=== PATIENT | female | born 1960 | race Hispanic/Latino ===

== ENCOUNTER 2017-09-11 12:02 | Inpatient (IN) | payer OTHER ==
[~2017-09-11] VITALS: Ht 160 cm; Wt 85.5 kg
[2017-09-11] MEDS ORDERED: SODIUM CHLORIDE 0.9% 1000ML 1,000 ML IV STA (12:16)
[2017-09-11] MEDS ORDERED: CEFTRIAXONE SOD 1 GM VIAL IM ONE (12:30)
[2017-09-11] MEDS ORDERED: SODIUM CHLORIDE 0.9% 1000ML 1,000 ML IV SCH ×2 (12:30→16:45)
[2017-09-11] MEDS ORDERED: ALBUTEROL/IPRATROPIUM 3 ML NEB NEB ONE ×2 (12:30→13:45)
[2017-09-11] MEDS ORDERED: ASPIRIN 81 MG CHEW TAB PO ONE (12:30)
[2017-09-11] MEDS ORDERED: ACETAMINOPHEN 325 MG TAB PO ONE ×2 (12:45→19:15)
[2017-09-11] MEDS ORDERED: CEFTRIAXONE SOD 1 GM VIAL IV NR (12:45)
[2017-09-11 13:00] LABS: BASOPHILS % 0.1 % (0.0-1.0); HEMOGLOBIN 12.8 g/dL (12.0-16.0); LYMPHOCYTES # (AUTO) 0.7 (1.0-3.2); LYMPHOCYTES % 6.8 % (18.0-39.1); MEAN CORPUSCULAR HEMOGLOBIN 28.1 pg (28-32); MEAN CORPUSCULAR HGB CONC 32.8 g/dL (31-35); MEAN CORPUSCULAR VOLUME 85.5 fL (81-99); MONOCYTES # (AUTO) 0.9 (0.2-0.8); NEUTROPHILS # (AUTO) 8.1 (2.1-6.9); NEUTROPHILS % 83.6 % (38.7-80.0); PLATELET COUNT 131 x10e3/uL (140-360); RED BLOOD COUNT 4.56 x10e6/uL (3.6-5.1); RED CELL DISTRIBUTION WIDTH 13.2 % (11.7-14.4)
[2017-09-11] MEDS ORDERED: ALBUTEROL/IPRATROPIUM 3 ML NEB ONE (13:16)
[2017-09-11 13:17] LABS: ALBUMIN 3.3 g/dL (3.5-5.0); ALBUMIN/GLOBULIN RATIO 0.8 (0.8-2.0); ANION GAP 16.7 mmol/L (8-16); CALCIUM 8.9 mg/dL (8.4-10.2); CREATININE, SERUM 1.07 mg/dL (0.57-1.11); POTASSIUM 3.7 mmol/L (3.5-5.1)
[2017-09-11 13:23] LABS: CREATINE KINASE MB 0.6 ng/mL (0.00-5.00); TROPONIN I 0.013 ng/mL (0-0.300)
[2017-09-11 13:28] LABS: B-TYPE NATRIURETIC PEPTIDE2 60.1 pg/mL (0-100)
--- NOTE | 2017-09-11 13:40 | Diagnostic Imaging Report ---
PROCEDURE: A single AP view of the chest. COMPARISON: None. INDICATIONS: DYSPNEA FINDINGS: Lines/tubes: None. Lungs: The lungs are well-inflated. Patchy bibasilar airspace opacities, worse on the right lower lobe. No definite consolidation. Pleura: There is no pleural effusion or pneumothorax. Heart and mediastinum: Cardiac silhouette is unremarkable. Mild peribronchial cuffing. Pulmonary vasculature is normal. Bones: No acute bony abnormality. IMPRESSION: 1. findings in the lower lobes, particularly on the right, may represent developing pneumonia, in the appropriate clinical setting versus aspiration. Harvinder Brown M.D. Dictated by: Harvinder Brown M.D. on 09/11/2017 at 13:47 Electronically approved by: Harvinder Brown M.D. on 09/11/2017 at 13:47
[2017-09-11] MEDS ORDERED: AZITHROMYCIN 500MG/SOD CHL 0.9% 250ML BAG IV SCH (14:00)
[2017-09-11 14:07] LABS: LYMPHOCYTES % (MANUAL) 21 % (19-48); METAMYELOCYTES % (MANUAL) 9 % (0-0); MONOCYTES % (MANUAL) 41 % (3.4-9.0); NEUTROPHILS % (MANUAL) 25 % (40-74)
[2017-09-11 14:08] LABS: PLATELET ESTIMATE SLIGHTLY DECREASED; PLATELET MORPHOLOGY COMMENT NORMAL; RBC MORPHOLOGY COMMENT NORMAL
[2017-09-11 14:18] LABS: INR 0.95; PROTHROMBIN TIME 13.2 seconds (11.9-14.5)
[2017-09-11 14:19] LABS: PARTIAL THROMBOPLASTIN TIME 30.3 seconds (23.8-35.5)
[2017-09-11] MEDS ORDERED: CEFTRIAXONE SOD 1 GM in WATER STERILE 10ML VIAL 10 ML IV SCH (15:00)
[2017-09-11] MEDS: ALBUTEROL SULF 0.083% NEB SOLN 3 ML NEB NEB SCH ×3 (15:05→23:02)
[2017-09-11] MEDS: AZITHROMYCIN 500MG/NS 250 ML 250 ML IV SCH (16:42)
[2017-09-11] MEDS ORDERED: ACETAMINOPHEN 325 MG TAB PO PRN ×2 (18:15→18:30)
[2017-09-11] MEDS: OSELTAMIVIR PHOSPHATE 75 MG CAP PO SCH (18:15)
[2017-09-11] MEDS: IPRATROPIUM BROMIDE 0.02% 2.5 ML NEB NEB SCH (19:00)
[2017-09-11] MEDS: SODIUM CHLORIDE 0.9% 1000ML 1,000 ML IV SCH ×2 (19:23→22:04)
--- NOTE | 2017-09-11 19:38 | History and Physical ---
CLINICAL HISTORY: This is a 57-year-old woman seen in the emergency room at [facility] because of flu and pneumonia. This patient has no previous medical history. She was otherwise well until 4 days ago when she noticed dry mouth, aches in her legs followed by diffuse body aches throughout. Yesterday, she went to see Dr. Ortega and was given injection of antibiotic as well as amoxicillin. She felt improved. She came to the emergency room and was found to have pneumonia, H. flu was positive. The patient is being admitted for further evaluation and treatment. PAST MEDICAL HISTORY: Remarkable for absence of other illnesses. She denies any diabetes, hypertension, hyperlipidemia, heart disease or stroke. She is not taking any other medication other than amoxicillin. FAMILY HISTORY: Mother had hypertension and diabetes. Father had lung cancer. Sister had hypertension and diabetes. PAST SURGICAL HISTORY: section. HOME MEDICATIONS: Amoxicillin as mentioned above. PERSONAL/SOCIAL HISTORY: She denies smoking or drinking. She is a housewife. REVIEW OF SYSTEMS: Noncontributory. PHYSICAL EXAMINATION: GENERAL: She appears to be acutely ill. She is somewhat short of breath, slightly tachypneic. VITAL SIGNS: Otherwise stable. CARDIOVASCULAR: Jugular veins are not distended. S1 and S2 were regular. There are no appreciable murmurs. RESPIRATORY: Show bilateral rales. ABDOMEN: Soft. Bowel sounds are present. EXTREMITIES: No cyanosis, clubbing or edema. LABORATORY: EKG was not done. Chest x-ray showed pneumonia, most likely in the right lung base. White count is 9700, hemoglobin 12.8, platelet count 131,000. Sodium is 135. SGOT is 36 and SGPT 63. CK was 209. CK MB is 0.6. Troponin 0.013. Albumin 3.3. IMPRESSION 1. Influenza. 2. Possible superimposed pneumonia, particularly in the right lower lobe. 3. Hyponatremia, 135 mg per deciliter. 4. Mild thrombocytopenia 131,000. RECOMMENDATIONS: Pulmonary consultation. Intravenous antibiotics. She is probably too late to get antiviral therapy. Job#: [id number] GH cc:HOMER ORTEGA MD cc:RISSA NEWTON M.D.
[2017-09-11 23:46] VITALS: BP 179/87
[2017-09-12 01:48] VITALS: BP 126/79
[2017-09-12] MEDS: ALBUTEROL SULF 0.083% NEB SOLN 3 ML NEB NEB SCH ×7 (02:25→23:40)
[2017-09-12] MEDS: IPRATROPIUM BROMIDE 0.02% 2.5 ML NEB NEB SCH ×4 (02:25→19:20)
[2017-09-12] MEDS ORDERED: CEFTRIAXONE SOD 1 GM VIAL ONE (08:01)
[2017-09-12 08:14] VITALS: BP 103/58
[2017-09-12] MEDS: CEFTRIAXONE SOD 1 GM in WATER STERILE 10ML VIAL 10 ML IV SCH (09:08)
[2017-09-12] MEDS: OSELTAMIVIR PHOSPHATE 75 MG CAP PO SCH ×2 (09:08→17:05)
[2017-09-12] MEDS: SODIUM CHLORIDE 0.9% 1000ML 1,000 ML IV SCH ×3 (09:08→20:55)
[2017-09-12] MEDS ORDERED: VANCOMYCIN HCL 1.25 GM in SODIUM CHLORIDE 0.9% 250ML 250 ML IV ONE (12:00)
[2017-09-12 12:25] VITALS: BP 106/65
--- NOTE | 2017-09-12 13:09 | Consultation ---
DATE OF CONSULTATION: September 12, 2017 ATTENDING PHYSICIAN: Walter Brizuela MD REASON FOR CONSULTATION: Flu, pneumonia. Thank you, Dr. Brizuela, for asking me to see this patient. HISTORY OF PRESENT ILLNESS: The patient is a 57-year-old woman referred for flu pneumonia. She presented to the emergency department with progressive shortness of breath and pleuritic chest pain. She began having cough and fever on Friday and was evaluated by the primary care provider the next day. Following evaluation she was treated with intramuscular injection 1 time as well as Augmentin. The patient took 3 to 4 doses of the Augmentin but did not respond. Instead, she developed progressive shortness of breath, pleuritic chest pain and marked lack of energy. Therefore, she came to the emergency department. In the emergency department, she was noted to have "abnormal vital signs" defined as febrile, tachypnea, tachycardia, and hypertension, although the triage note is not available at this time for review. Oxygen saturation on room air was documented as 90%. Initial laboratory studies showed white blood cell count of 9730 with 83.6% neutrophils, BUN 18, creatinine 1.07 and positive (influenza A) rapid influenza test. Chest x-ray showed bilateral lower lobe pneumonia. PAST MEDICAL HISTORY: None. PAST SURGICAL HISTORY: section. ALLERGIES: NO KNOWN DRUG ALLERGIES. MEDICATIONS: See MAR. The current antibiotics are ceftriaxone 1 g IV piggyback q.24 h., azithromycin 500 mg IV piggyback q.24 h. and oseltamivir 75 mg p.o. b.i.d. IMMUNIZATIONS: She received influenza vaccine in July 2017. Pneumococcal vaccination status cannot be verified at this time. FAMILY HISTORY: The mother with diabetes mellitus and hypertension. The father had lung cancer and a sister with diabetes mellitus and hypertension. SOCIAL HISTORY: No alcohol or tobacco use. REVIEW OF SYSTEMS: As per history of present illness. She still has cough, pleuritic chest pain, shortness of breath, and fever. She denies hemoptysis, nausea, vomiting, diarrhea, abdominal pain and dysuria. PHYSICAL EXAMINATION GENERAL: Acutely ill with labored breathing. VITAL SIGNS: T-max 101.4, pulse 87, respiratory rate 18, blood pressure 103/58. Weight 193 pounds. HEENT: Normocephalic. There is no icterus or injection of conjunctivae. There is no ear or nasal discharge. Moist oral mucosa. No pharyngeal erythema or exudate. NECK: Supple. No lymphadenopathy. LUNGS: Rales bilaterally. HEART: Normal S1 and S2. Regular. ABDOMEN: Soft and nontender. EXTREMITIES: No edema, clubbing or cyanosis. SKIN: No acute erythema. LPN CMA: Awake, alert and oriented to person, place and time. No focal deficit. LABORATORY: 09/11/2017: WBC 9703, hemoglobin 12.8, platelets 131,000, neutrophils 83.6, lymphs 6.8, monos 9, eosinophils 0, basophils 0.1. BUN 18, creatinine 1.07. Blood culture is pending. Sputum culture is also pending. IMPRESSION 1. Sepsis. 2. Pneumonia. 3. Influenza A. 4. Hypoxemia. PLAN 1. Check MRSA screen, and legionella antigen test. Streptococcus pneumoniae antigen test is not on the panel here, and outsourcing takes a long time to come back and would not be clinically useful. 2. I agree with current antimicrobials. Start vancomycin 15 mg per kg IV once today. The patient should be given pneumococcal vaccination if not yet done. Pain control. Job#: [id number] LAURENT
[2017-09-12] MEDS: ACETAMINOPHEN 1000 MG/100 ML IV SCH ×2 (14:48→22:00)
[2017-09-12] MEDS: AZITHROMYCIN 500MG/NS 250 ML 250 ML IV SCH (15:11)
[2017-09-12] MEDS: METHYLPREDNISOLONE SOD SUCC 40 MG/ML VIAL IV SCH (15:11)
--- NOTE | 2017-09-12 15:49 | Consultation ---
DATE OF CONSULTATION: PULMONARY CONSULTATION REASON FOR CONSULTATION: Pneumonia. HPI: Ms. Oviedo is a 57-year-old female admitted under Dr. Brizuela's service with complaints of shortness of breath and cough going on for the last few days. This was associated with body aches. She went to see Dr. Denny and was given IV antibiotic. She felt a little better, but still was having cough and body pain, especially chest pain when she was taking deep breaths, so she decided to come to the emergency room. REVIEW OF SYSTEMS GENERAL: Was having fever and chills. HEENT: Denies any head trauma or head injury. ENT: Denies any earache, nosebleed, throat pain. CVS: Pleuritic chest pain. RESPIRATORY: Shortness of breath. GI: Denies any nausea or vomiting. OTHER: The rest of the review of systems are negative except as in HPI. PAST MEDICAL HISTORY: None. PAST SURGICAL HISTORY: . FAMILY HISTORY: Mother has hypertension and diabetes. Father had lung cancer. SOCIAL HISTORY: She denies any smoking or alcohol use. PHYSICAL EXAMINATION VITALS: Temperature 97.4, pulse of 80. Blood pressure 103/58. Respiratory rate 18. O2 sat 97% on 3 liters. SKIN: Warm and dry. GENERAL APPEARANCE: She is a middle-aged female, mild to moderate respiratory distress. She is awake and alert, following commands, responding to questions appropriately. HEENT: Atraumatic and normocephalic. Pupils are reactive. NECK: Supple. CHEST: Crackles bilaterally. Poor effort as she has pleuritic chest pain. HEART: S1, S2 audible. ABDOMEN: Soft, nontender, nondistended. EXTREMITIES: No clubbing, cyanosis or edema. NEUROLOGIC: Awake and alert, following commands, responding to questions appropriately. LABORATORY DATA: Sodium 135, potassium 3.7, BUN 18, creatinine 1.07, AST and ALT 36 and 63. White count 9.73, hemoglobin 12.8, platelets 131. INR is 0.95. Sputum Gram stain and blood cultures are pending. Influenza is positive. I reviewed the chest x-ray films. She has right lower lobe pneumonia and possibly left lower lobe as well, but definitely right lower lobe. ASSESSMENT AND PLAN 1. Right lower lobe pneumonia. 2. Influenza. 3. Pleuritic chest pain as location of pneumonia is very close to pleural surface. PLAN 1. Continue the patient on Tamiflu and IV antibiotics. The patient is on IV Rocephin and azithromycin. ID has been consulted. 2. Continue the patient on nebulizer treatment. I will start low-dose of IV steroids as this will help in pleuritic chest pain and inflammation. Thank you for this consult. Job#: [id number]
[2017-09-12 16:42] VITALS: BP 180/56
[2017-09-12 19:55] VITALS: BP 110/55
[2017-09-13 00:07] VITALS: BP 134/73
[2017-09-13] MEDS: IPRATROPIUM BROMIDE 0.02% 2.5 ML NEB NEB SCH ×4 (03:40→19:10)
[2017-09-13] MEDS: ALBUTEROL SULF 0.083% NEB SOLN 3 ML NEB NEB SCH ×5 (03:40→19:10)
[2017-09-13 05:19] VITALS: BP 108/57
[2017-09-13] MEDS: SODIUM CHLORIDE 0.9% 1000ML 1,000 ML IV SCH ×3 (05:20→22:00)
[2017-09-13] MEDS: ACETAMINOPHEN 1000 MG/100 ML IV SCH (05:46)
[2017-09-13] MEDS ORDERED: CEFTRIAXONE SOD 1 GM VIAL ONE (07:37)
[2017-09-13] MEDS: OSELTAMIVIR PHOSPHATE 75 MG CAP PO SCH ×2 (07:53→17:10)
[2017-09-13] MEDS: METHYLPREDNISOLONE SOD SUCC 40 MG/ML VIAL IV SCH (07:53)
[2017-09-13] MEDS: CEFTRIAXONE SOD 1 GM in WATER STERILE 10ML VIAL 10 ML IV SCH (07:53)
[2017-09-13 07:59] VITALS: BP 125/67
[2017-09-13] MEDS ORDERED: VANCOMYCIN HCL 1.25 GM in SODIUM CHLORIDE 0.9% 250ML 250 ML IV ONE (11:30)
[2017-09-13 12:01] VITALS: BP 137/74
[2017-09-13] MEDS: PANTOPRAZOLE SOD 40 MG TABEC PO SCH (14:15)
[2017-09-13] MEDS: AZITHROMYCIN 500MG/NS 250 ML 250 ML IV SCH (15:11)
[2017-09-13 16:05] VITALS: BP 118/86
[2017-09-13] MEDS: BUDESONIDE 0.5MG/2 ML NEB INH SCH (19:10)
[2017-09-13 20:00] VITALS: BP 138/65
[2017-09-14] VITALS: BP 112/53
[2017-09-14] MEDS ORDERED: GUAIFENESIN/DEXTROMETHORPHAN LIQD 5 ML UDC PO STA (00:18)
[2017-09-14] MEDS: ALBUTEROL SULF 0.083% NEB SOLN 3 ML NEB NEB SCH ×5 (03:10→19:45)
[2017-09-14] MEDS: IPRATROPIUM BROMIDE 0.02% 2.5 ML NEB NEB SCH ×4 (03:10→19:45)
[2017-09-14 04:00] VITALS: BP 131/63
[2017-09-14] MEDS: GUAIFENESIN/DEXTROMETHORPHAN LIQD 5 ML UDC PO PRN ×3 (04:15→22:05)
[2017-09-14] MEDS: SODIUM CHLORIDE 0.9% 1000ML 1,000 ML IV SCH (04:55)
[2017-09-14] MEDS: BUDESONIDE 0.5MG/2 ML NEB INH SCH ×2 (07:09→20:00)
[2017-09-14 08:09] VITALS: BP 130/66
[2017-09-14] MEDS ORDERED: CEFTRIAXONE SOD 1 GM VIAL ONE (08:44)
[2017-09-14] MEDS: PANTOPRAZOLE SOD 40 MG TABEC PO SCH (10:08)
[2017-09-14] MEDS: OSELTAMIVIR PHOSPHATE 75 MG CAP PO SCH ×2 (10:08→16:51)
[2017-09-14] MEDS: CEFTRIAXONE SOD 1 GM in WATER STERILE 10ML VIAL 10 ML IV SCH (10:08)
[2017-09-14] MEDS: METHYLPREDNISOLONE SOD SUCC 40 MG/ML VIAL IV SCH (10:08)
[2017-09-14 12:01] VITALS: BP 137/67
[2017-09-14 13:36] LABS: BASOPHILS # (AUTO) 0.1 (0.0-0.1); BASOPHILS % 0.5 % (0.0-1.0); HEMATOCRIT 31.1 % (34.2-44.1); HEMOGLOBIN 10.7 g/dL (12.0-16.0); LYMPHOCYTES # (AUTO) 1.3 (1.0-3.2); LYMPHOCYTES % 11.4 % (18.0-39.1); MEAN CORPUSCULAR HEMOGLOBIN 28.3 pg (28-32); MEAN CORPUSCULAR HGB CONC 34.4 g/dL (31-35); MEAN CORPUSCULAR VOLUME 82.3 fL (81-99); MONOCYTES # (AUTO) 1.1 (0.2-0.8); PLATELET COUNT 240 x10e3/uL (140-360); RED BLOOD COUNT 3.78 x10e6/uL (3.6-5.1); RED CELL DISTRIBUTION WIDTH 14.2 % (11.7-14.4)
[2017-09-14 14:15] LABS: ANION GAP 10.9 mmol/L (8-16); BLOOD UREA NITROGEN 8 mg/dL (7-26); BUN/CREATININE RATIO 13 (6-25); CALCIUM 8.3 mg/dL (8.4-10.2); CARBON DIOXIDE 25 mmol/L (22-29); CHLORIDE 107 mmol/L (98-107); CREATININE, SERUM 0.63 mg/dL (0.57-1.11); EST GLOMERULAR FILTRATION RATE > 60 ML/MIN (60-); GLUCOSE 156 mg/dL (74-118); SODIUM 140 mmol/L (136-145)
[2017-09-14 14:20] LABS: POTASSIUM 2.9 mmol/L (3.5-5.1)
[2017-09-14 15:02] LABS: BAND NEUTROPHILS % (MANUAL) 28 %; LYMPHOCYTES % (MANUAL) 17 % (19-48); MONOCYTES % (MANUAL) 2 % (3.4-9.0); NEUTROPHILS % (MANUAL) 53 % (40-74)
[2017-09-14 15:03] LABS: PLATELET ESTIMATE ADEQUATE; PLATELET MORPHOLOGY COMMENT NORMAL; RBC MORPHOLOGY COMMENT NORMAL
[2017-09-14] MEDS: VANCOMYCIN 1GM/NS 250 ML 250 ML IV SCH (15:28)
[2017-09-14 16:00] VITALS: BP 123/62
[2017-09-14] MEDS ORDERED: POTASSIUM CHLORIDE 20 MEQ TAB CR PO ONE (16:00)
[2017-09-14] MEDS: AZITHROMYCIN 500MG/NS 250 ML 250 ML IV SCH (16:51)
[2017-09-14 20:27] VITALS: BP 127/72
[2017-09-15] MEDS: IPRATROPIUM BROMIDE 0.02% 2.5 ML NEB NEB SCH ×4 (00:15→19:45)
[2017-09-15] MEDS: LEVALBUTEROL HCL SOLN NEBU 0.63 MG/3 ML NEB INH SCH ×8 (00:15→23:05)
[2017-09-15] MEDS: VANCOMYCIN 1GM/NS 250 ML 250 ML IV SCH ×2 (00:30→13:14)
[2017-09-15 00:42] VITALS: BP 115/58
[2017-09-15] MEDS ORDERED: LEVALBUTEROL HCL SOLN NEBU 0.63 MG/3 ML NEB INH SCH (01:00)
[2017-09-15 05:37] VITALS: BP 139/67
[2017-09-15] MEDS: SODIUM CHLORIDE 0.9% 1000ML 1,000 ML IV SCH (06:00)
--- NOTE | 2017-09-15 06:11 | Diagnostic Imaging Report ---
EXAMINATION: CHEST SINGLE (PORTABLE) INDICATION: Pneumonia. COMPARISON: None FINDINGS: TUBES and LINES: None. LUNGS: Lungs are not well inflated. There are bibasilar atelectasis. There is mild prominence of the central pulmonary vasculature, consistent with pulmonary venous congestion. Additionally, there are confluent opacities in the lung bases right greater than left. PLEURA: No pleural effusion or pneumothorax. HEART AND MEDIASTINUM: The cardiomediastinal silhouette is unremarkable. BONES AND SOFT TISSUES: No acute osseous lesion. Soft tissues are unremarkable. UPPER ABDOMEN: No free air under the diaphragm. IMPRESSION: 1. Findings are compatible with fluid overload/pulmonary edema. 2. Bibasilar atelectasis present. 3. Superimposed pneumonia cannot be excluded more conspicuously noted in the right lower lobe Signed by: Dr. Jose Pradhan M.D. on 09/15/2017 6:08 AM
[2017-09-15] MEDS: BUDESONIDE 0.5MG/2 ML NEB INH SCH (06:50)
[2017-09-15] MEDS: PANTOPRAZOLE SOD 40 MG TABEC PO SCH (07:30)
[2017-09-15 08:00] VITALS: BP 128/75
[2017-09-15] MEDS ORDERED: CEFTRIAXONE SOD 1 GM VIAL ONE (08:44)
[2017-09-15] MEDS: CEFTRIAXONE SOD 1 GM in WATER STERILE 10ML VIAL 10 ML IV SCH (08:52)
[2017-09-15] MEDS: OSELTAMIVIR PHOSPHATE 75 MG CAP PO SCH ×2 (08:52→17:27)
[2017-09-15] MEDS: METHYLPREDNISOLONE SOD SUCC 40 MG/ML VIAL IV SCH (08:52)
[2017-09-15] MEDS ORDERED: POTASSIUM CHLORIDE 20 MEQ TAB CR PO ONE (10:40)
[2017-09-15] MEDS ORDERED: FUROSEMIDE INJ 10 MG/ML 2 ML VIAL IV ONE (10:45)
[2017-09-15 11:13] LABS: % IRON SATURATION 9 % (15-50); IRON 19 ug/dL (50-170); LIPASE 169 U/L (8-78); TOTAL IRON BINDING CAPACITY 223 ug/dL (261-478); TRANSFERRIN 159 mg/dL (180-382)
[2017-09-15 12:00] VITALS: BP 150/78
[2017-09-15] MEDS: POTASSIUM CHLORIDE 20 MEQ TAB CR PO SCH ×3 (13:28→17:27)
[2017-09-15] MEDS: AZITHROMYCIN 500MG/NS 250 ML 250 ML IV SCH (14:45)
[2017-09-15 16:00] VITALS: BP 120/65
[2017-09-15 20:00] VITALS: BP 118/88
[2017-09-16] VITALS: BP 134/78
[2017-09-16] MEDS: LEVALBUTEROL HCL SOLN NEBU 0.63 MG/3 ML NEB INH SCH ×5 (00:45→20:30)
[2017-09-16] MEDS: VANCOMYCIN 1GM/NS 250 ML 250 ML IV SCH (01:00)
[2017-09-16] MEDS: IPRATROPIUM BROMIDE 0.02% 2.5 ML NEB NEB SCH ×4 (02:02→20:30)
[2017-09-16 04:00] VITALS: BP 124/58
[2017-09-16 05:58] LABS: BASOPHILS # (AUTO) 0.1 (0.0-0.1); BASOPHILS % 0.4 % (0.0-1.0); EOSINOPHILS # (AUTO) 0.1 (0.0-0.4); EOSINOPHILS % 0.6 % (0.0-6.0); HEMOGLOBIN 10.1 g/dL (12.0-16.0); LYMPHOCYTES # (AUTO) 2.8 (1.0-3.2); LYMPHOCYTES % 21.1 % (18.0-39.1); MEAN CORPUSCULAR HEMOGLOBIN 28.6 pg (28-32); MEAN CORPUSCULAR HGB CONC 33.7 g/dL (31-35); MONOCYTES # (AUTO) 1.1 (0.2-0.8); MONOCYTES % 8.5 % (4.4-11.3); NEUTROPHILS # (AUTO) 8.2 (2.1-6.9); NEUTROPHILS % 62.1 % (38.7-80.0); PLATELET COUNT 356 x10e3/uL (140-360); RED BLOOD COUNT 3.53 x10e6/uL (3.6-5.1); RED CELL DISTRIBUTION WIDTH 14.6 % (11.7-14.4)
[2017-09-16] MEDS: SODIUM CHLORIDE 0.9% 1000ML 1,000 ML IV SCH (06:00)
[2017-09-16 06:18] LABS: ALANINE AMINOTRANSFERASE 39 IU/L (0-55); ALBUMIN 2.3 g/dL (3.5-5.0); ALBUMIN/GLOBULIN RATIO 0.7 (0.8-2.0); ALKALINE PHOSPHATASE 60 IU/L (40-150); ANION GAP 11.6 mmol/L (8-16); BLOOD UREA NITROGEN 11 mg/dL (7-26); BUN/CREATININE RATIO 20 (6-25); CALCIUM 8.2 mg/dL (8.4-10.2); CARBON DIOXIDE 29 mmol/L (22-29); CHLORIDE 108 mmol/L (98-107); CREATININE, SERUM 0.56 mg/dL (0.57-1.11); EST GLOMERULAR FILTRATION RATE > 60 ML/MIN (60-); GLUCOSE 92 mg/dL (74-118); POTASSIUM 3.6 mmol/L (3.5-5.1); SODIUM 145 mmol/L (136-145)
--- NOTE | 2017-09-16 07:13 | Diagnostic Imaging Report ---
PROCEDURE: X-RAY CHEST, TWO VIEWS COMPARISON: 09/15/2017. INDICATIONS: COUGH FINDINGS: The lungs are reasonably well inflated. There is right middle lobe consolidation most notable on the lateral radiograph. Patchy perihilar and bilateral lower lobe air space opacities are also noted, along with small bilateral pleural effusions. Heart size is normal for technique with a tortuous thoracic aorta. No acute osseous abnormality. CONCLUSION: Findings suggest pulmonary venous congestion and trace bilateral pleural effusions with superimposed right middle lobe pneumonia. Dictated by: Joel Moreno M.D. on 09/16/2017 at 7:21 Electronically approved by: Joel Moreno M.D. on 09/16/2017 at 7:21
[2017-09-16 07:43] LABS: BAND NEUTROPHILS % (MANUAL) 2 %; LYMPHOCYTES % (MANUAL) 28 % (19-48); METAMYELOCYTES % (MANUAL) 2 % (0-0); MONOCYTES % (MANUAL) 3 % (3.4-9.0); MYELOCYTES % (MANUAL) 2 % (0-0); NEUTROPHILS % (MANUAL) 62 % (40-74)
[2017-09-16 07:44] LABS: ANISOCYTOSIS SLIGHT; PLATELET ESTIMATE ADEQUATE; PLATELET MORPHOLOGY COMMENT NORMAL; POIKILOCYTOSIS SLIGHT; RBC MORPHOLOGY COMMENT NORMAL
[2017-09-16 08:03] VITALS: BP 127/69
[2017-09-16] MEDS ORDERED: ZYVOX600 MG PO (09:32)
[2017-09-16] MEDS: LINEZOLID 600 MG/D5W 300ML 300 ML IV SCH ×2 (10:09→22:00)
[2017-09-16] MEDS: METHYLPREDNISOLONE SOD SUCC 40 MG/ML VIAL IV SCH (10:09)
[2017-09-16] MEDS ORDERED: FUROSEMIDE INJ 10 MG/ML 2 ML VIAL IV NR (10:45)
[2017-09-16] MEDS ORDERED: POTASSIUM CHLORIDE 20 MEQ TAB CR PO NR (10:45)
[2017-09-16] MEDS ORDERED: OYST-CAL-D 500MG TABLET PO NR (11:00)
[2017-09-16] MEDS ORDERED: METOLAZONE 5 MG TAB PO NR (11:00)
--- NOTE | 2017-09-16 11:53 | Cardiology Report ---
DATE OF STUDY: September 15, 2017 ECHOCARDIOGRAM M-MODE: Normal chamber wall dimensions. Normal contractility. Normal mitral and aortic valves. No pericardial effusion. SECTOR SCAN: Normal chamber wall dimensions. Normal contractility. Ejection fraction 70%. Mitral, aortic and tricuspid valves are grossly normal. There is no pericardial effusion. CARDIAC DOPPLER STUDY WITH COLOR: Trace tricuspid regurgitation. Pulmonary artery systolic pressure estimated at 28 mmHg. CONCLUSIONS 1. Left ventricular ejection fraction is approximately 70%. 2. Trace tricuspid regurgitation without significant pulmonary hypertension. Job#: [id number] cc:MD RSISA YANES M.D.
--- NOTE | 2017-09-16 12:10 | Diagnostic Imaging Report ---
PROCEDURE:US GALLBLADDER COMPARISON:None. INDICATIONS:ELEVATED LFT TECHNIQUE: Manrique-scale and color doppler transverse and longitudinal images of the right upper quadrant of the abdomen were obtained. FINDINGS: Liver: 13.4 cm in right mid-clavicular line. Increased parenchymal echogenicity. No masses. Main portal vein: One cm in caliber. Hepatopedal flow. Gallbladder: Unremarkable in sonographic appearance without shadowing calculus, wall thickening, or pericholecystic fluid. Common Bile Duct: 0.5 cm in caliber. Sonographic Pinzon's sign: Negative Right kidney: 11.1 cm in length. Normal renal cortical echogenicity. No solid masses or hydronephrosis. Questionable shadowing focus in the right kidney may represent a calculus. Pancreas: The visualized portions are unremarkable. Inferior vena cava: Patent Aorta: Non-aneurysmal Ascites: None in the right upper quadrant of the abdomen. CONCLUSION: Unremarkable sonographic appearance of the gallbladder. No cholelithiasis or sonographic evidence of acute cholecystitis. Hepatic steatosis. Small right renal calculus or dystrophic cortical calcification. No hydronephrosis. Dictated by: Joel Moreno M.D. on 09/16/2017 at 12:17 Electronically approved by: Joel Moreno M.D. on 09/16/2017 at 12:17
[2017-09-16] MEDS: OSELTAMIVIR PHOSPHATE 75 MG CAP PO SCH ×2 (12:17→17:44)
[2017-09-16] MEDS: FERROUS SULFATE 325 MG TAB PO SCH (12:17)
[2017-09-16] MEDS: PANTOPRAZOLE SOD 40 MG TABEC PO SCH (12:17)
[2017-09-16 12:32] LABS: BILIRUBIN,URINE NEGATIVE (NEGATIVE); CLARITY,URINE CLEAR (CLEAR); COLOR,URINE YELLOW (YELLOW); KETONES,URINE NEGATIVE (NEGATIVE); LEUKOCYTE ESTERASE ,URINE NEGATIVE (NEGATIVE); NITRITE,URINE NEGATIVE (NEGATIVE); PROTEIN,URINE DIPSTICK NEGATIVE (NEGATIVE); URINE UROBILINOGEN 0.2 mg/dL (0.2 - 1)
[2017-09-16] MEDS ORDERED: VANCOMYCIN HCL 1.25 GM in SODIUM CHLORIDE 0.9% 250ML 250 ML IV SCH (13:00)
[2017-09-16 20:00] VITALS: BP 129/69
[2017-09-17] VITALS: BP 120/56
[2017-09-17 04:00] VITALS: BP 118/60
[2017-09-17] MEDS: SODIUM CHLORIDE 0.9% 1000ML 1,000 ML IV SCH (06:00)
[2017-09-17 06:58] LABS: ALANINE AMINOTRANSFERASE 49 IU/L (0-55); ALBUMIN 2.7 g/dL (3.5-5.0); ALBUMIN/GLOBULIN RATIO 0.7 (0.8-2.0); ALKALINE PHOSPHATASE 78 IU/L (40-150); ANION GAP 14.7 mmol/L (8-16); BLOOD UREA NITROGEN 12 mg/dL (7-26); BUN/CREATININE RATIO 18 (6-25); CALCIUM 9.2 mg/dL (8.4-10.2); CARBON DIOXIDE 29 mmol/L (22-29); CHLORIDE 102 mmol/L (98-107); CREATININE, SERUM 0.66 mg/dL (0.57-1.11); EST GLOMERULAR FILTRATION RATE > 60 ML/MIN (60-); GLUCOSE 104 mg/dL (74-118); POTASSIUM 3.7 mmol/L (3.5-5.1); SODIUM 142 mmol/L (136-145)
[2017-09-17] MEDS: GUAIFENESIN/DEXTROMETHORPHAN LIQD 5 ML UDC PO PRN (07:10)
[2017-09-17] MEDS: LEVALBUTEROL HCL SOLN NEBU 0.63 MG/3 ML NEB INH SCH ×5 (07:20→23:10)
[2017-09-17] MEDS: IPRATROPIUM BROMIDE 0.02% 2.5 ML NEB NEB SCH ×3 (07:20→19:40)
[2017-09-17] MEDS: PANTOPRAZOLE SOD 40 MG TABEC PO SCH (08:33)
[2017-09-17] MEDS: OSELTAMIVIR PHOSPHATE 75 MG CAP PO SCH ×2 (08:33→17:30)
[2017-09-17] MEDS: FERROUS SULFATE 325 MG TAB PO SCH (08:33)
[2017-09-17] MEDS: METHYLPREDNISOLONE SOD SUCC 40 MG/ML VIAL IV SCH (08:33)
[2017-09-17 08:46] VITALS: BP 112/59
[2017-09-17] MEDS ORDERED: FUROSEMIDE INJ 10 MG/ML 2 ML VIAL IV NR (10:00)
[2017-09-17] MEDS: LINEZOLID 600 MG/D5W 300ML 300 ML IV SCH ×2 (10:10→21:41)
[2017-09-17] MEDS ORDERED: ACETAZOLAMIDE 500 MG CAP PO NR (11:00)
[2017-09-17] MEDS ORDERED: POTASSIUM CHLORIDE 20 MEQ TAB CR PO NR (11:15)
--- NOTE | 2017-09-17 11:24 | Diagnostic Imaging Report ---
PROCEDURE: A single AP view of the chest. COMPARISON: None. INDICATIONS: PNEUMONIA, SHORTNESS OF BREATH FINDINGS: Lines/tubes: None. Lungs: Bibasilar airspace opacities. No parenchymal mass. Pleura: There is no pleural effusion or pneumothorax. Heart and mediastinum: The heart and the mediastinum are unremarkable. Bones: No acute bony abnormality. Degenerative changes of the thoracic spine. IMPRESSION: Bibasilar airspace opacities may represent a developing pneumonia. Dictated by: Jose Miguel Henning M.D. on 09/17/2017 at 11:31 Electronically approved by: Jose Miguel Henning M.D. on 09/17/2017 at 11:31
[2017-09-17 11:54] VITALS: BP 111/70
[2017-09-17 15:19] LABS: ABG HCO3 34 mmol/L (23-28); ABG PCO2 43 mmHg (41-51); ABG PH 7.51 (7.31-7.41); ABG PO2 59 mmHg (80-105)
[2017-09-17 16:24] VITALS: BP 115/63
[2017-09-17 20:00] VITALS: BP 116/78
[2017-09-18] VITALS: BP 117/70
[2017-09-18] MEDS: LEVALBUTEROL HCL SOLN NEBU 0.63 MG/3 ML NEB INH SCH ×6 (00:35→19:25)
[2017-09-18] MEDS: IPRATROPIUM BROMIDE 0.02% 2.5 ML NEB NEB SCH ×4 (02:40→19:25)
[2017-09-18 04:00] VITALS: BP 86/50
[2017-09-18 06:12] LABS: BASOPHILS # (AUTO) 0.1 (0.0-0.1); BASOPHILS % 0.3 % (0.0-1.0); EOSINOPHILS # (AUTO) 0.1 (0.0-0.4); EOSINOPHILS % 0.7 % (0.0-6.0); HEMATOCRIT 33.8 % (34.2-44.1); LYMPHOCYTES # (AUTO) 3.4 (1.0-3.2); MEAN CORPUSCULAR HEMOGLOBIN 27.8 pg (28-32); MEAN CORPUSCULAR HGB CONC 32.5 g/dL (31-35); MEAN CORPUSCULAR VOLUME 85.6 fL (81-99); MONOCYTES # (AUTO) 0.8 (0.2-0.8); MONOCYTES % 5.1 % (4.4-11.3); NEUTROPHILS # (AUTO) 11.6 (2.1-6.9); NEUTROPHILS % 70.9 % (38.7-80.0); PLATELET COUNT 392 x10e3/uL (140-360); RED BLOOD COUNT 3.95 x10e6/uL (3.6-5.1)
[2017-09-18 06:48] LABS: ALANINE AMINOTRANSFERASE 46 IU/L (0-55); ALBUMIN 2.6 g/dL (3.5-5.0); ALBUMIN/GLOBULIN RATIO 0.7 (0.8-2.0); ALKALINE PHOSPHATASE 67 IU/L (40-150); ANION GAP 15.5 mmol/L (8-16); BLOOD UREA NITROGEN 15 mg/dL (7-26); BUN/CREATININE RATIO 24 (6-25); CALCIUM 8.9 mg/dL (8.4-10.2); CARBON DIOXIDE 31 mmol/L (22-29); CHLORIDE 99 mmol/L (98-107); CREATININE, SERUM 0.63 mg/dL (0.57-1.11); EST GLOMERULAR FILTRATION RATE > 60 ML/MIN (60-); GLUCOSE 100 mg/dL (74-118); POTASSIUM 3.5 mmol/L (3.5-5.1); SODIUM 142 mmol/L (136-145)
[2017-09-18 08:25] VITALS: BP 98/63
--- NOTE | 2017-09-18 08:41 | Diagnostic Imaging Report ---
PROCEDURE: X-RAY CHEST, TWO VIEWS COMPARISON: [facility], DX, CHEST SINGLE (PORTABLE), 09/17/2017, 8:49. INDICATIONS: PNEUMONIA. FLU. SHORTNESS OF BREATH. COUGH FINDINGS: LUNGS: Right middle lobe airspace opacity compatible with pneumonia. There is also a left lower lobe airspace opacity compatible with pneumonia. PLEURA: No effusions or pneumothorax. HEART \T\ MEDIASTINUM: The heart is within normal size-limits. Tortuous thoracic aorta. BONES \T\ SOFT TISSUES: No acute findings. CONCLUSION: Multifocal pneumonia. Jose Luis Winn D.O. Dictated by: Jose Luis Winn D.O. on 09/18/2017 at 8:48 Electronically approved by: Jose Luis Winn D.O. on 09/18/2017 at 8:48
[2017-09-18] MEDS: PANTOPRAZOLE SOD 40 MG TABEC PO SCH (09:25)
[2017-09-18] MEDS: LINEZOLID 600 MG/D5W 300ML 300 ML IV SCH ×2 (09:26→22:00)
[2017-09-18] MEDS: METHYLPREDNISOLONE SOD SUCC 40 MG/ML VIAL IV SCH (09:26)
[2017-09-18] MEDS: OSELTAMIVIR PHOSPHATE 75 MG CAP PO SCH (09:26)
[2017-09-18] MEDS: FERROUS SULFATE 325 MG TAB PO SCH (09:26)
[2017-09-18] MEDS ORDERED: ACETAZOLAMIDE 500 MG CAP PO ONE (10:30)
[2017-09-18] MEDS ORDERED: POTASSIUM CHLORIDE 20 MEQ TAB CR PO ONE (10:30)
[2017-09-18 12:15] VITALS: BP 113/67
[2017-09-18 16:33] VITALS: BP 106/72
[2017-09-18 20:00] VITALS: BP 101/69
[2017-09-19] VITALS: BP 119/70
[2017-09-19] MEDS: LEVALBUTEROL HCL SOLN NEBU 0.63 MG/3 ML NEB INH SCH ×6 (04:00→23:15)
[2017-09-19] MEDS: IPRATROPIUM BROMIDE 0.02% 2.5 ML NEB NEB SCH ×4 (04:00→19:04)
[2017-09-19 04:31] VITALS: BP 98/58
[2017-09-19 06:28] LABS: ANION GAP 12.1 mmol/L (8-16); BLOOD UREA NITROGEN 14 mg/dL (7-26); BUN/CREATININE RATIO 21 (6-25); CALCIUM 8.9 mg/dL (8.4-10.2); CARBON DIOXIDE 30 mmol/L (22-29); CHLORIDE 103 mmol/L (98-107); CREATININE, SERUM 0.66 mg/dL (0.57-1.11); EST GLOMERULAR FILTRATION RATE > 60 ML/MIN (60-); GLUCOSE 95 mg/dL (74-118); POTASSIUM 4.1 mmol/L (3.5-5.1); SODIUM 141 mmol/L (136-145)
[2017-09-19 08:00] VITALS: BP 107/64
[2017-09-19] MEDS: PANTOPRAZOLE SOD 40 MG TABEC PO SCH (09:13)
[2017-09-19] MEDS: LINEZOLID 600 MG/D5W 300ML 300 ML IV SCH ×2 (09:13→21:11)
[2017-09-19] MEDS: FERROUS SULFATE 325 MG TAB PO SCH (09:13)
[2017-09-19] MEDS: BECLOMETHASONE DIP 80MCG 7.3 GM INH INH SCH (11:45)
[2017-09-19 12:00] VITALS: BP 103/61
[2017-09-19 16:00] VITALS: BP 102/62
[2017-09-19] MEDS: PREDNISONE 10 MG TAB PO SCH (17:58)
[2017-09-19 20:00] VITALS: BP_SYST 103; BP_SYST 166; BP_DIAS 53; BP_DIAS 86
[2017-09-20] VITALS: BP 115/54
[2017-09-20] MEDS: LEVALBUTEROL HCL SOLN NEBU 0.63 MG/3 ML NEB INH SCH ×6 (02:25→23:34)
[2017-09-20] MEDS: IPRATROPIUM BROMIDE 0.02% 2.5 ML NEB NEB SCH ×4 (02:25→20:08)
[2017-09-20 04:00] VITALS: BP 98/55
--- NOTE | 2017-09-20 06:45 | Diagnostic Imaging Report ---
EXAM: CHEST 2 VIEWS, PA and lateral DATE: 09/20/2017 7:00 AM Time stamp on exam: 0606 hours INDICATION: Pneumonia COMPARISON: PA and lateral view of the chest September 18, 2017 FINDINGS: LINES/TUBES: None LUNGS: Bibasilar consolidations. PLEURA: No effusions or pneumothorax. HEART AND MEDIASTINUM: Normal size and contour. BONES AND SOFT TISSUES: No acute findings. IMPRESSION: Bibasilar pneumonia versus aspiration. Signed by: Dr. Myrtle Marcelino M.D. on 09/20/2017 6:41 AM
[2017-09-20 07:11] LABS: BASOPHILS % 0.2 % (0.0-1.0); EOSINOPHILS # (AUTO) 0.1 (0.0-0.4); EOSINOPHILS % 1.1 % (0.0-6.0); HEMOGLOBIN 10.8 g/dL (12.0-16.0); LYMPHOCYTES # (AUTO) 2.7 (1.0-3.2); LYMPHOCYTES % 21.7 % (18.0-39.1); MEAN CORPUSCULAR HEMOGLOBIN 28.1 pg (28-32); MEAN CORPUSCULAR HGB CONC 31.8 g/dL (31-35); MEAN CORPUSCULAR VOLUME 88.3 fL (81-99); MONOCYTES # (AUTO) 0.6 (0.2-0.8); NEUTROPHILS # (AUTO) 8.9 (2.1-6.9); NEUTROPHILS % 71.1 % (38.7-80.0); PLATELET COUNT 359 x10e3/uL (140-360); RED BLOOD COUNT 3.85 x10e6/uL (3.6-5.1); RED CELL DISTRIBUTION WIDTH 13.9 % (11.7-14.4)
[2017-09-20 07:33] LABS: ANION GAP 11.9 mmol/L (8-16); BLOOD UREA NITROGEN 13 mg/dL (7-26); BUN/CREATININE RATIO 20 (6-25); CALCIUM 8.7 mg/dL (8.4-10.2); CARBON DIOXIDE 29 mmol/L (22-29); CHLORIDE 102 mmol/L (98-107); CREATININE, SERUM 0.64 mg/dL (0.57-1.11); EST GLOMERULAR FILTRATION RATE > 60 ML/MIN (60-); GLUCOSE 92 mg/dL (74-118); POTASSIUM 3.9 mmol/L (3.5-5.1); SODIUM 139 mmol/L (136-145)
[2017-09-20 08:00] VITALS: BP 106/55
[2017-09-20] MEDS: PREDNISONE 10 MG TAB PO SCH (08:00)
[2017-09-20] MEDS: FERROUS SULFATE 325 MG TAB PO SCH (08:00)
[2017-09-20] MEDS: PANTOPRAZOLE SOD 40 MG TABEC PO SCH (08:00)
[2017-09-20] MEDS: BECLOMETHASONE DIP 80MCG 7.3 GM INH INH SCH (08:50)
[2017-09-20 09:00] LABS: ABG HCO3 31 mmol/L (23-28); ABG PCO2 41 mmHg (41-51); ABG PH 7.49 (7.31-7.41); ABG PO2 92 mmHg (80-105)
[2017-09-20] MEDS: LINEZOLID 600 MG/D5W 300ML 300 ML IV SCH ×2 (09:46→21:41)
[2017-09-20 12:00] VITALS: BP 126/60
[2017-09-20 16:00] VITALS: BP 114/62
[2017-09-20] MEDS ORDERED: XOPENEX0.63 MG/3 INH (16:48)
[2017-09-20] MEDS ORDERED: FEOSOL325 MG PO (16:48)
[2017-09-20] MEDS ORDERED: BECLOMETHASONE DIP INH (16:48)
[2017-09-20] MEDS ORDERED: IPRATROPIU0.2 MG/1 M NEB (16:48)
[2017-09-20] MEDS ORDERED: COMBIVENT RESPIM4 GM IH (16:48)
[2017-09-20] MEDS ORDERED: Guaifenesin/Dextromethorphan PO (16:48)
[2017-09-20] MEDS ORDERED: ZYVOX600 MG PO (16:51)
[2017-09-20 20:00] VITALS: BP 102/53
[2017-09-21] VITALS: BP 103/57
[2017-09-21] MEDS: IPRATROPIUM BROMIDE 0.02% 2.5 ML NEB NEB SCH ×3 (03:30→12:00)
[2017-09-21] MEDS: LEVALBUTEROL HCL SOLN NEBU 0.63 MG/3 ML NEB INH SCH ×3 (03:30→11:30)
[2017-09-21 04:00] VITALS: BP 101/57
[2017-09-21] MEDS: BECLOMETHASONE DIP 80MCG 7.3 GM INH INH SCH (06:00)
[2017-09-21] MEDS: FERROUS SULFATE 325 MG TAB PO SCH (07:31)
[2017-09-21] MEDS: PANTOPRAZOLE SOD 40 MG TABEC PO SCH (07:31)
[2017-09-21] MEDS: LINEZOLID 600 MG/D5W 300ML 300 ML IV SCH (07:31)
[2017-09-21 08:00] VITALS: BP_SYST 103; BP_SYST 138; BP_DIAS 56; BP_DIAS 87
--- NOTE | 2017-09-21 15:49 | Discharge Summary ---
CLINICAL HISTORY: This is a 57-year-old woman admitted via the emergency room because of influenza A and secondary MRSA pneumonia. Please refer to my previous dictation concerning details of current illness, past medical history, personal/social, family history, review of systems, physical examination and initial laboratory studies. HOSPITAL COURSE: The patient is seen in consultation by student records specialist, Dr. Fatemeh Martin, and infectious disease real estate listing consultant, Dr. Rashad Mckeon. She had bilateral pulmonary infiltrates and severe diffuse wheezing, which was unrelenting despite multiple bronchodilator therapy. She was also found to have iron deficiency anemia, elevated liver functions with hypoalbuminemia and bilateral pleural effusions. She was referred for outpatient GI evaluation in the future. In the meantime, she was treated with vancomycin as well as Zyvox. Eventually the vancomycin was discontinued because of low JANIS. Echocardiogram showed normal ejection fraction of 70%. She was treated with diuretics when she failed to respond to bronchodilators, which did not appear to have helped. Guaiac was negative. She was found to be iron deficient and treated with iron. After prolonged intensive treatment she eventually cleared up her wheezing. Chest x-ray still showed bibasilar pneumonia. She required home oxygen. Arrangements were made for such. She is discharged with the following medications: Atrovent nebulizer every 6 hours. Xopenex nebulizer every 6 hours. She is unable to get the above. She was given a prescription for Combivent. She is to continue on Zyvox for additional 5 days 600 mg b.i.d. She is to take Qvar inhalers as well as Robitussin DM and iron sulfate 325 mg per day. She has home oxygen. She is scheduled for followup with pulmonary physician, Dr. Fatemeh Martin, internal medicine, primary care physician, Dr. Zoya Mcdonough and anchor tack puller, Dr. Castillo Simon in one week. She was given a ____ medication and followup instructions. Her discharge oxygen was 2 liters with good saturation. DISCHARGE DIAGNOSES: 1. Influenza. 1. Secondary bilateral pneumonia with severe hypoxemia requiring home oxygen. 2. Iron deficiency anemia. 3. Elevated liver functions to be followed by anchor tack puller. 4. Normal left ventricular ejection fraction of 70%. 5. Hyponatremia, resolved. Serum sodium increasing from 135 to 139. 6. Mild thrombocytopenia 131,000, improved to 359,000 at the time of discharge. FOLLOWUP INSTRUCTIONS: She is to follow up with Dr. Homer Ortega, Dr. Fatemeh Martin and Dr. Castillo Simon. EVA QUINONEZ MD Job#: [id number] GH cc:ZOYA MCDONOUGH MD cc:FATEMEH MARTIN MD cc:HOMER ORTEGA MD
== END 2017-09-21 13:50 | disposition home or self-care (01) | DRG 871 ==
LOC: ER 12:02 → UNDOADMIN 16:07 → ERHOLD 16:07 → MED/SURG2 23:14 → ERHOLD 23:14
PROVIDERS: ADMIT Internal Medicine Cardiovascular Disease; ATTEND Internal Medicine Cardiovascular Disease
DX: A41.9 Sepsis, unspecified organism (principal); J11.08 Influenza due to unidentified influenza virus with specified pneumonia; J96.91 Respiratory failure, unspecified with hypoxia; J15.212 Pneumonia due to Methicillin resistant Staphylococcus aureus; D69.6 Thrombocytopenia, unspecified; E88.09 Other disorders of plasma-protein metabolism, not elsewhere classified; E87.1 Hypo-osmolality and hyponatremia; D50.9 Iron deficiency anemia, unspecified; K21.9 Gastro-esophageal reflux disease without esophagitis
CPT/HCPCS: 36415; 36600; 71010; 71020; 76705; 80048; 80053; 80202; 81003; 82270; 82330; 82550; 82553; 82805; 82948; 83540; 83605; 83690; 83880; 84466; 84484; 85025; 85610; 85730; 87040; 87070; 87081; 87186; 87205; 87400; 87449; 93005; 93306; 94640; 96361; 96367; 99284; J0456; J0696; J1940; J2020; J2920; J3370; J7030; J7050